=== PATIENT | male | born 1945 | race Caucasian/White ===

== ENCOUNTER 2020-03-21 05:15 | Day surgery (SDC) | payer MEDICARE ==
[2020-03-16 13:42] LABS: BASOPHILS 0.3 % (0-2); EOSINOPHILS 1.7 % (0-7); HEMATOCRIT 44.7 % (42.0-54.0); HEMOGLOBIN 14.9 g/dL (13.5-17.5); IMMATURE GRANULOCYTES 0.2 % (0-5); LYMPHOCYTE ABS# 1.89 10x3/uL (1.32-3.57); LYMPHOCYTES 29.4 % (15-50); MCH 29.9 pg (26.0-34.0); MCHC 33.3 g/dL (31.0-37.0); MCV 89.8 fL (80.0-100.0); MEAN PLATELET VOLUME 10.4 fL (7.4-10.4); MONOCYTES 8.7 % (2-11); NEUTROPHIL ABS# 3.84 10x3/uL (1.78-5.38); NEUTROPHILS 59.7 % (40-80); PLATELET COUNT 202 10x3/uL (130-400); RBC 4.98 10x6/uL (4.20-6.10); RDW 12.9 % (11.5-14.5); WBC 6.4 10x3/uL (4.8-10.8)
[2020-03-16 13:49] LABS: CALC OSMOLALITY 277 mosm/kg (275-300); CALCIUM 9.1 mg/dL (8.5-10.1); CARBON DIOXIDE 28.5 mmol/L (21.0-32.0); CHLORIDE - SERUM 102 mmol/L (98-107); CREATININE - SERUM 0.8 mg/dL (0.6-1.3); GLUCOSE 107 mg/dL (74-106); POTASSIUM - SERUM 4.1 mmol/L (3.5-5.1); SODIUM 140 mmol/L (136-145); UREA NITROGEN 9 mg/dL (7-18); eGFR NON AFRICAN AMERICAN > 90 mL/min (90-120)
[~2020-03-21] VITALS: Ht 188 cm; Wt 104.5 kg
--- NOTE | ~2020-03-21 | OP ---
PATIENT NAME: NOAH CHADWICK MEDICAL RECORD: [id number] :45 LOCATION:[facility] ADMISSION DATE: SURGEON: PHILOMENA FARRAR MD DATE OF OPERATION: 03/21/2020 DATE OF SERVICE: 03/21/2020 PREOPERATIVE DIAGNOSES: Lumbar spinal stenosis and foraminal stenosis L4-L5 at left with right L4-L5 foraminal stenosis. POSTOPERATIVE DIAGNOSES: Lumbar spinal stenosis and foraminal stenosis L4-L5 at left with right L4-L5 foraminal stenosis. SURGEON: Philomena Farrar MD PROCEDURE: Left L4-L5 lumbar laminectomy, medial facetectomy and foraminotomy with sublaminar decompression and right L4-L5 foraminotomy. DESCRIPTION OF PROCEDURE: After induction of general endotracheal anesthesia, the patient was rolled prone on the Evans frame. Lumbar spine was prepped and draped in usual sterile fashion. Fluoroscopic x-ray and spinal needle localized the L4-L5 interspace on the left side. A series of dilators were used to advance a [employer] retractor over the L4-L5 interspace on the left side. Levels confirmed with fluoroscopic x-ray. A microscope and Midas Gopi drill were used to perform laminotomy, medial facetectomy and foraminotomy at L4-L5 on the left. Hypertrophied ligamentum flavum was removed with Cloward rongeurs. Following this, the L4 and L5 nerve roots on the left side were decompressed as well. The spinous process of L4 was undermined with the Midas Gopi drill. The retractor was tilted to the foramen at L4-L5 on the right. Hypertrophied ligamentum flavum was removed on this side as well. This decompressed the L4 and L5 nerve roots well. Meticulous hemostasis was maintained throughout the wound. The wound was irrigated with copious amounts of Ancef irrigant solution. The retractor was removed. The fascia was closed with 2-0 Vicryl suture. Subdermal layer was closed with 3-0 Vicryl suture. The skin was closed with anaid. A sterile dressing was applied to the wound. The patient was awakened in good condition and taken to recovery. All counts were reported as correct. Estimated blood loss was minimal. TRANSINT:[id number] Voice Confirmation ID: [id number] DOCUMENT ID: [id number] PHILOMENA FARRAR MD CC: [id number] DICTATION DATE: 04/11/20 1255 LABORATORY EQUIPMENT CLEANER: 04/11/20 1323 [facility] 03/21/20 [place] [id number] [place] [id number]
[~2020-03-21 05:15] MED LIST: BENEZEPRIL; FLOMAX0.4 MG PO; MULTI-DAY VITAM1 TAB PO; PROBIOTIC1 EAC1
[2020-03-21 05:45] VITALS: BP 127/76; Ht 188 cm; Wt 104.5 kg
--- NOTE | 2020-03-21 08:44 | NUR ---
PATIENT POSITIONED PRONE ALL AREAS PADDED SECURED, GENITALS CHECKED NO IMPINGEMENTS, 4X4 AREA ON LEFT UPPER ARM PINKISH RED AREA NOTED, ISAAC.
[2020-03-21] MEDS ORDERED: HYDROCODON-ACE1 EA10 PO (09:38)
[2020-03-21] MEDS ORDERED: MEDROL DOSE PACK4 MG PO (09:39)
--- NOTE | 2020-03-21 09:50 | NUR ---
REASSESSED LUMBAR AREA DRESSING - CDI
--- NOTE | 2020-03-21 12:53 | NUR ---
1155 ASSISTED UP TO VOID. PT SLIGHTLY UNSTEADY WITH CANE. VOIDED X1. IV REMOVED AT 1200 INSTRUCTIONS GIVEN
== END 2020-03-21 12:15 | disposition home or self-care (01) ==
LOC: D.OPS 05:15
PROVIDERS: Anesthesiology; ATTEND Neurological Surgery
DX: M48.061 Spinal stenosis, lumbar region without neurogenic claudication (principal); M54.16 Radiculopathy, lumbar region